=== PATIENT | male | born 2000 | race Caucasian/White ===

== ENCOUNTER 2020-03-06 21:39 | Emergency (ER) | payer OTHER ==
[~2020-03-06] VITALS: Ht 172.7 cm; Wt 99.1 kg
[2020-03-06 21:47] VITALS: Ht 172.7 cm; Wt 99.1 kg
[2020-03-06 23:12] VITALS: BP 147/72
== END 2020-03-06 23:12 | disposition home or self-care (01) ==
LOC: ED 21:39
DX: S61.214A Laceration without foreign body of right ring finger without damage to nail, initial encounter (principal); Z88.8 Allergy status to other drugs, medicaments and biological substances; W26.0XXA Contact with knife, initial encounter; Y93.89 Activity, other specified; Y92.89 Other specified places as the place of occurrence of the external cause; Y99.8 Other external cause status
CPT/HCPCS: 90715